=== PATIENT | female | born 1985 | race Caucasian/White ===

== ENCOUNTER 2016-08-31 09:09 | Emergency (ER) | payer OTHER ==
[~2016-08-31] VITALS: Ht 162.6 cm; Wt 92.6 kg
[~2016-08-31 09:09] MED LIST: ALBU8.5H3 INH
[2016-08-31 09:10] VITALS: BP 120/86
[2016-08-31] MEDS ORDERED: ACETAMINOPHEN 325 MG TABLET ONE (09:50)
[2016-08-31] MEDS ORDERED: IBUPROFEN 200 MG TABLET ONE (09:50)
[2016-08-31] MEDS ORDERED: ACETAMINOPHEN 325 MG TABLET PO ONE (10:00)
[2016-08-31] MEDS ORDERED: IBUPROFEN 200 MG TABLET PO ONE (10:00)
[2016-08-31 10:17] LABS: BLOOD UREA NITROGEN 6 mg/dL (7-18)
[2016-08-31 10:20] LABS: RAPID INFLUENZA A Negative (Negative); RAPID INFLUENZA B Negative (Negative)
== END 2016-08-31 10:56 | disposition home or self-care (01) ==
LOC: ED 10:01
DX: B34.9 Viral infection, unspecified (principal); M79.1 Myalgia; D72.829 Elevated white blood cell count, unspecified
CPT/HCPCS: 36415; 80048; 82040; 85025; 87081; 87400; 87880; 99284

== ENCOUNTER 2016-09-01 12:36 | Emergency (ER) | payer OTHER ==
[~2016-09-01] VITALS: Ht 162.6 cm; Wt 92.4 kg
[2016-09-01 12:37] VITALS: BP 130/84
[2016-09-01] MEDS ORDERED: ACETAMINOPHEN 325 MG TABLET ONE (13:19)
[2016-09-01] MEDS ORDERED: DEXAMETHASONE 4 MG TABLET ONE (13:19)
[2016-09-01] MEDS ORDERED: DEXAMETHASONE 4 MG TABLET PO ONE (13:30)
[2016-09-01] MEDS ORDERED: ACETAMINOPHEN 325 MG TABLET PO ONE (13:30)
== END 2016-09-01 14:07 | disposition home or self-care (01) ==
LOC: ED 13:35
DX: J03.90 Acute tonsillitis, unspecified (principal); J45.909 Unspecified asthma, uncomplicated; H92.09 Otalgia, unspecified ear
CPT/HCPCS: 99283

== ENCOUNTER 2016-09-03 09:47 | Emergency (ER) | payer OTHER ==
[~2016-09-03] VITALS: Ht 162.6 cm; Wt 93.8 kg
[2016-09-03 09:49] VITALS: BP 111/78
== END 2016-09-03 10:44 | disposition home or self-care (01) ==
LOC: ED 10:38
DX: J02.0 Streptococcal pharyngitis (principal); J45.909 Unspecified asthma, uncomplicated; G43.909 Migraine, unspecified, not intractable, without status migrainosus
CPT/HCPCS: 99282

== ENCOUNTER → 2016-12-05 | Outpatient (CLI) | payer OTHER ==
[~2016-12-05] MED LIST changes: -ALBU8.5H3 INH; +ALBU8.5H8 INH
== END | disposition home or self-care (01) ==
LOC: CFH 12:50
PROVIDERS: ATTEND Otolaryngology
DX: K21.9 Gastro-esophageal reflux disease without esophagitis (principal)
CPT/HCPCS: 74220

== ENCOUNTER 2017-11-16 18:39 | Emergency (ER) | payer OTHER ==
[~2017-11-16] VITALS: Ht 162.6 cm; Wt 102.1 kg
[2017-11-16] MEDS ORDERED: PRED20TA PO (19:44)
[2017-11-16] MEDS ORDERED: ALBUTEROL/IPRATROPIUM 2.5MG/0.5MG, 3 ML NPPB ONE (20:00)
[2017-11-16] MEDS ORDERED: ALBUTEROL/IPRATROPIUM 2.5MG/0.5MG, 3 ML ONE (21:16)
[2017-11-16 21:17] VITALS: BP 138/70
== END 2017-11-16 21:39 | disposition home or self-care (01) ==
LOC: ED 19:00
DX: J45.31 Mild persistent asthma with (acute) exacerbation (principal); J45.21 Mild intermittent asthma with (acute) exacerbation; G43.909 Migraine, unspecified, not intractable, without status migrainosus
CPT/HCPCS: 71045; 93005; 94640; 99284; J7620